=== PATIENT | male | born 1985 | race African-American/Black ===

== ENCOUNTER 2024-08-06 05:31 | Emergency (ER) | payer MEDICAID ==
[~2024-08-06] VITALS: Ht 172.7 cm; Wt 64.0 kg
[2024-08-06 05:38] VITALS: BP 143/94; PULSE 91; RESP 18; TEMP 98.3; O2SAT 99
[2024-08-06 06:18] LABS: HEMATOCRIT. 36.3 % (42.0-52.0); MEAN CORPUSCULAR HGB CONC 33.1 g/dL (31.0-37.0); MEAN CORPUSCULAR VOLUME 81.6 fL (80.0-94.0); MEAN PLATELET VOLUME 7.8 fl (7.4-10.4); PLATELET 340 x1000/uL (130-400); RED BLOOD CELL COUNT 4.45 mill/uL (4.7-6.1); RED CELL DISTRIBUTION WIDTH 14.5 % (11.6-14.6); WHITE BLOOD COUNT 10.3 x1000/uL (4.5-11.0)
[2024-08-06 06:27] LABS: CHLORIDE 103 mEq/L (98-107); POTASSIUM 3.6 mEq/L (3.5-5.1); SODIUM 137 mEq/L (136-145)
[2024-08-06 06:28] LABS: CALCIUM 9.4 mg/dL (8.7-10.4); CARBON DIOXIDE 28 mEq/L (21-32); PROTHROMBIN TIME 10.9 sec (9.6-11.0)
[2024-08-06 06:33] LABS: GLUCOSE 99 mg/dL (70-105); UREA NITROGEN BLOOD 31 mg/dL (9-23)
[2024-08-06 06:46] LABS: ETHANOL BLOOD < 10 mg/dL (<10)
[2024-08-06 06:50] LABS: DIFFERENTIAL COMMENT 1
[2024-08-06 10:35] LABS: MICROCYTOSIS 1+; PLATELET ESTIMATE NORMAL
== END 2024-08-06 06:33 | disposition left against medical advice (07) ==
LOC: ER 05:31
DX: T18.9XXA Foreign body of alimentary tract, part unspecified, initial encounter (principal); W44.9XXA Unspecified foreign body entering into or through a natural orifice, initial encounter; Y93.89 Activity, other specified; Y92.89 Other specified places as the place of occurrence of the external cause; Y99.8 Other external cause status
CPT/HCPCS: 36415; 80048; 80320; 83930; 85025; 99283; G0480